=== PATIENT | female | born 1935 | race Caucasian/White ===

== ENCOUNTER 2018-12-16 00:54 | Emergency (ER) | payer BC ==
[~2018-12-16] VITALS: Ht 162.6 cm; Wt 63.5 kg
[2018-12-16 00:55] VITALS: BP_SYST 205
[2018-12-16] MEDS ORDERED: hydrALAZINE HCL 20 MG/ML VIAL IVP ONE ×2 (01:15→02:00)
[2018-12-16] MEDS ORDERED: NS 500 ML IV ONE (01:15)
[2018-12-16 01:57] LABS: BASOPHILS # (AUTO) 0.1 K/uL (0.0-0.2); BASOPHILS % (AUTO) 1.8 % (0.0-2.0); EOSINOPHILS # (AUTO) 0.1 K/uL (0.0-0.4); EOSINOPHILS % (AUTO) 2.2 % (0.0-4.0); HEMATOCRIT 44.8 % (36-48); HEMOGLOBIN 14.9 g/dL (12.0-16.0); LYMPHOCYTES # (AUTO) 1.1 K/uL (1.0-5.5); LYMPHOCYTES % (AUTO) 16.4 % (20.5-51.5); MEAN CORPUSCULAR HEMOGLOBIN 30 pg (27-31); MEAN CORPUSCULAR HGB CONC 33 % (32-36); MEAN CORPUSCULAR VOLUME 89 fL (79.0-98.0); MONOCYTES # (AUTO) 0.4 K/uL (0.0-1.0); NEUTROPHILS % (AUTO) 73.6 % (40.0-70.0); PLATELET COUNT (AUTO) 232 K/uL (130-430); RED BLOOD CELL COUNT(AUTO) 5.06 MIL/uL (4.2-6.2); RED CELL DISTRIBUTION WIDTH 13.7 % (9.0-15.0); WHITE BLOOD COUNT (AUTO) 6.8 K/uL (4.8-10.8)
[2018-12-16 02:14] LABS: ANION GAP 9 (5-15); CHLORIDE 106 mmol/L (98-107); CREATININE 1.38 mg/dL (0.55-1.30); GLUCOSE 105 mg/dL (70-99); POTASSIUM 4.3 mmol/L (3.5-5.1); SODIUM SERUM 140 mmol/L (136-145); UREA NITROGEN, BLOOD 36 mg/dL (8-21)
[2018-12-16] MEDS ORDERED: cloNIDine HCL 0.1 MG TABLET PO ONE (02:15)
[2018-12-16 02:22] LABS: ALANINE AMINOTRANSFERASE 22 U/L (12-78); ALBUMIN 3.5 g/dL (3.4-4.8); ASPARTATE AMINOTRANSFERASE 18 U/L (10-37); TOTAL BILIRUBIN 0.2 mg/dL (0.0-1.0)
[2018-12-16] MEDS ORDERED: IBUPROFEN 400 MG TABLET PO ONE (02:45)
[2018-12-16 05:09] VITALS: BP_SYST 153
== END 2018-12-16 05:08 | disposition home or self-care (01) ==
LOC: SED 00:54
DX: E86.0 Dehydration (principal); N17.9 Acute kidney failure, unspecified; R42 Dizziness and giddiness; I10 Essential (primary) hypertension; M19.90 Unspecified osteoarthritis, unspecified site; Z90.49 Acquired absence of other specified parts of digestive tract
CPT/HCPCS: 36415; 70450; 80053; 84484; 85025; 93005; 96374; 99284; J0360; J7040

== ENCOUNTER 2019-09-18 19:17 | Inpatient (IN) | payer BC ==
[~2019-09-18] VITALS: Ht 162.6 cm; Wt 77.6 kg
[2019-09-18 19:17] VITALS: BP_SYST 163
--- NOTE | 2019-09-18 19:17 | NUR ---
Pt BIB BLS, placed to ER hallway 1 in stable condition. BLS with pt until bed becomes available.
--- NOTE | 2019-09-18 19:55 | NUR ---
Patient to ER bed 6 to gown for evaluation. Side rails up.
[2019-09-18] MEDS ORDERED: NS 500 ML IV ONE (20:00)
--- NOTE | 2019-09-18 20:03 | NUR ---
Pt brought in by [facility]. pt awake, alert, oriented x4. Pt states that she had been feeling "Wobbly" at home. Pt states that she had headache earlier today but currently has no symptoms. Pt states that her family called 911 because her blood pressure was high. EMS states that systolic/diastolic was above 200/100 on scene with repeat blood pressures. Pt states that she has no other symptoms at this time. Pt denies chest pain, nausea, vomiting, diarrhea, shortness of breath or any other medical complaint at this time. Pt resting in ED bed. Pt VSS
--- NOTE | 2019-09-18 20:03 | NUR ---
ER at bedside examining patient.
[2019-09-18] MEDS ORDERED: PANTOPRAZOLE SODIUM 40 MG/VIAL (PROTONIX) IVP ONE (20:15)
[2019-09-18 20:17] LABS: BASOPHILS # (AUTO) 0.1 K/uL (0.0-0.2); BASOPHILS % (AUTO) 1.4 % (0.0-2.0); EOSINOPHILS # (AUTO) 0.3 K/uL (0.0-0.4); EOSINOPHILS % (AUTO) 3.1 % (0.0-4.0); HEMATOCRIT 44.5 % (36-48); LYMPHOCYTES # (AUTO) 1.4 K/uL (1.0-5.5); LYMPHOCYTES % (AUTO) 17.8 % (20.5-51.5); MEAN CORPUSCULAR HEMOGLOBIN 30 pg (27-31); MEAN CORPUSCULAR HGB CONC 34 % (32-36); MEAN CORPUSCULAR VOLUME 90 fL (79.0-98.0); MONOCYTES # (AUTO) 0.7 K/uL (0.0-1.0); MONOCYTES % (AUTO) 8.3 % (1.7-9.3); NEUTROPHILS # (AUTO) 5.6 K/uL (1.8-7.7); NEUTROPHILS % (AUTO) 69.4 % (40.0-70.0); PLATELET COUNT (AUTO) 237 K/uL (130-430); RED BLOOD CELL COUNT(AUTO) 4.96 MIL/uL (4.2-6.2); RED CELL DISTRIBUTION WIDTH 13.8 % (9.0-15.0); WHITE BLOOD COUNT (AUTO) 8.1 K/uL (4.8-10.8)
[2019-09-18] MEDS ORDERED: hydrALAZINE HCL 20 MG/ML VIAL IVP ONE (20:45)
[2019-09-18 20:46] LABS: ANION GAP 6 (5-15); CALCIUM 8.8 mg/dL (8.4-11.0); CHLORIDE 104 mmol/L (98-107); GLUCOSE 93 mg/dL (70-99); POTASSIUM 4.2 mmol/L (3.5-5.1); SODIUM SERUM 137 mmol/L (136-145); UREA NITROGEN, BLOOD 32 mg/dL (8-21)
[2019-09-18 20:52] LABS: ALANINE AMINOTRANSFERASE 40 U/L (12-78); ALBUMIN 3.5 g/dL (3.4-4.8); ASPARTATE AMINOTRANSFERASE 28 U/L (10-37); TOTAL BILIRUBIN 0.4 mg/dL (0.0-1.0)
--- NOTE | 2019-09-18 20:55 | NUR ---
Irais from lab called with Critical lab value. Troponin 0.152
[2019-09-18 20:57] LABS: PROTHROMBIN TIME 9.8 SECS (9.5-12.5)
[2019-09-18] MEDS ORDERED: ASPIRIN 81 MG TAB.CHEW PO ONE (21:15)
[2019-09-18] MEDS ORDERED: HEPARIN 25,000 UNITS/D5W 250ML 250 ML IV ONE (21:15)
[2019-09-18] MEDS ORDERED: HEPARIN SODIUM,PORCINE 5000 UNITS/ML VIAL IVP ONE (21:15)
--- NOTE | 2019-09-18 21:30 | NUR ---
Heparin Drip started at 2ml/hr Per
--- NOTE | 2019-09-18 22:10 | NUR ---
Pt states she does not have to use the restroom. No urge to void. Unable to obtain urine specimen
[2019-09-18] MEDS ORDERED: KETOROLAC TROMETHAMINE 15 MG VIAL IVP ONE (22:15)
[2019-09-18] MEDS ORDERED: METOPROLOL TARTRATE 25 MG TABLET PO ONE (22:15)
[2019-09-18] MEDS ORDERED: NITROGLYCERIN 0.4 MG TAB.SUBL SL ONE (22:15)
--- NOTE | 2019-09-18 22:58 | NUR ---
Pt states pain relieved. pain only 1/10 at this time.
[2019-09-18] MEDS ORDERED: MORPHINE 2 MG/ML INJ. SYRINGE IVP ONE (23:30)
--- NOTE | 2019-09-18 23:33 | NUR ---
Patient will be admitted to care of and [facility]. Admitted to Telemetry unit. Will go to room 101A. Belongings list completed. Complete and up to date summary report printed. SBAR report to be given at bedside with opportunity for questions.
--- NOTE | 2019-09-18 23:33 | NUR ---
Transfer to Telemetry via ACLS protocol. Licensed nurse present. IV present no signs or symptoms of infiltration.
--- NOTE | 2019-09-18 23:53 | NUR ---
ADMIT NOTE Received pt from ER to the floor with a diagnosis of non-stemi. Admission process initiated. patient oriented to pain management, safety and call light-teach back done. Addendum: 09/19/19 at 0035 by Mikey You RN pt is on herapin drip at 200units per hour.
[2019-09-19] VITALS (9 sets, daily range): BP systolic 138–184
[2019-09-19] MEDS ORDERED: FLU VACC TS2019(65UP)/MF59C/PF 45 MCG/0.5 ML SYRINGE I.M. PRN (00:30)
--- NOTE | 2019-09-19 00:30 | NUR ---
RECIEVED REPORT FROM [facility], ALERT/ORIENTATED TIMES 4, RESPIRATIONS EVEN AND UNLABORED,ROOM AIR, , BEDREST, HEPARIN DRIP @ 200 CC/HR INFUSING IN LAC #20G, SKIN INTACT, REQUESTING SLEEPING PILL AND MOTRIN, SR'S UP X'S 3, CALL LIGHT WITHIN REACH, BED IN LOW POSITION, SR WITH 1ST DEGREE BLOCK , SPOKE WITH DR. IMMANUEL ROSALES AND ORDER OBTAINED TO CONTINUE HEPARIN DRIP PER PHARMACY PROTOCOL, ALSO ORDER GIVEN FOR RESTORIL 15MG PO X'S ONCE AND MS I MG IVP X'S ONCE, SPOKE WITH PHARMACIST KARO TO VERIFY HEPARIN DRIP ORDER, WILL CONTINUE TO MONITOR FOR ANY S/S OF DISTRESS.
--- NOTE | 2019-09-19 02:05 | NUR ---
Charlotte PAUL ([facility]) Paged Dr. Orr, s/w Agusto
[2019-09-19] MEDS ORDERED: *HEPARIN PER PHARMACY XX PRN (02:45)
[2019-09-19] MEDS ORDERED: TEMAZEPAM 15 MG CAPSULE PO ONE (02:45)
[2019-09-19] MEDS ORDERED: MORPHINE 2 MG/ML INJ. SYRINGE IVP ONE (02:45)
[2019-09-19] MEDS ORDERED: HEPARIN 25,000 UNITS in 250 ML PREMIX IV PRN (03:00)
[2019-09-19] MEDS ORDERED: HEPARIN SODIUM,PORCINE 2000 UNITS/0.4 ML BOLUS IVP PRN (03:00)
[2019-09-19] MEDS ORDERED: HEPARIN SODIUM,PORCINE 3000 UNITS/0.6 ML BOLUS IVP PRN (03:00)
[2019-09-19] MEDS ORDERED: ALBUTEROL SULFATE 0.083% 2.5 MG/3 ML VIAL.NEB INH PRN (06:15)
[2019-09-19] MEDS ORDERED: ONDANSETRON HCL 4 MG/2 ML VIAL IVP PRN (06:15)
--- NOTE | 2019-09-19 06:25 | NUR ---
CONSULT CARDIOLOGY NSTEMI DR BERGER [phone] S/W KAROL EXCHANGE
--- NOTE | 2019-09-19 06:36 | NUR ---
CLOSING NOTE: RESTING QUIETLY IN BED WITH EYES CLOSED. EASILYN AROUSED, REQUIRES 2 PERSON ASSIST WHEN GETTING OUT OF BED TO RESTROOM, REFUSES BEDPAN, HEPARIN DRIP CONTINUED @ 200 UNITS /HR IN LAC, NO NOTED ACTIVE BLEEDING , SKIN INTACT, TOLERATING PO FLUIDS WELL, DR. GAMBINO @ BEDSIDE, WILL VONTINUE TO MONITOR.
[2019-09-19 07:50] LABS: BASOPHILS # (AUTO) 0.1 K/uL (0.0-0.2); BASOPHILS % (AUTO) 0.8 % (0.0-2.0); EOSINOPHILS # (AUTO) 0.1 K/uL (0.0-0.4); EOSINOPHILS % (AUTO) 1.3 % (0.0-4.0); HEMATOCRIT 44.1 % (36-48); HEMOGLOBIN 14.6 g/dL (12.0-16.0); LYMPHOCYTES # (AUTO) 1.5 K/uL (1.0-5.5); LYMPHOCYTES % (AUTO) 18.5 % (20.5-51.5); MEAN CORPUSCULAR HEMOGLOBIN 30 pg (27-31); MEAN CORPUSCULAR HGB CONC 33 % (32-36); MEAN CORPUSCULAR VOLUME 90 fL (79.0-98.0); MONOCYTES # (AUTO) 0.6 K/uL (0.0-1.0); NEUTROPHILS # (AUTO) 5.7 K/uL (1.8-7.7); NEUTROPHILS % (AUTO) 72.4 % (40.0-70.0); PLATELET COUNT (AUTO) 237 K/uL (130-430); RED CELL DISTRIBUTION WIDTH 13.8 % (9.0-15.0); WHITE BLOOD COUNT (AUTO) 7.9 K/uL (4.8-10.8)
[2019-09-19 08:08] LABS: ALANINE AMINOTRANSFERASE 39 U/L (12-78); ALBUMIN 3.2 g/dL (3.4-4.8); ANION GAP 5 (5-15); ASPARTATE AMINOTRANSFERASE 30 U/L (10-37); CALCIUM 8.5 mg/dL (8.4-11.0); CHLORIDE 105 mmol/L (98-107); CREATININE 1.55 mg/dL (0.55-1.30); GLUCOSE 94 mg/dL (70-99); POTASSIUM 4.6 mmol/L (3.5-5.1); SODIUM SERUM 138 mmol/L (136-145); TOTAL BILIRUBIN 0.5 mg/dL (0.0-1.0); UREA NITROGEN, BLOOD 32 mg/dL (8-21)
[2019-09-19] MEDS: HYDROcodone/ACETAMIN 10-325 MG TAB PO PRN ×2 (08:30→16:22)
[2019-09-19] MEDS: ASPIRIN 325 MG TABLET PO SCH (09:14)
--- NOTE | 2019-09-19 09:15 | NUR ---
Routine Scheduled medication given per order. Patient resting comfortably in bed; states pain subsided to 2/10. Patient stable at this time.
[2019-09-19 09:31] LABS: CHOLESTEROL 226 mg/dL (<200); HDL CHOLESTEROL 54 mg/dL (>55); LDL CHOLESTEROL 140 mg/dL (<100); TRIGLYCERIDES 192 mg/dL (30-150)
--- NOTE | 2019-09-19 11:00 | NUR ---
Nutrition Update David Scale 18 noted. Pt admitted for NON STEMI. Diet: cardiac BMI: 29.4 kg/m2 RD to follow per nutrition care standards.
--- NOTE | 2019-09-19 13:15 | NUR ---
Routine Patient resting comfortably in bed with no distress noted at this time. Patient stable.
--- NOTE | 2019-09-19 15:10 | NUR ---
Patient received a/ox4, denies pain, denies shortness of breath, instructed the patient information support project manager light use, she verbalized understanding, call light placed within reach, fall and aspiration precautions in place.
--- NOTE | 2019-09-19 16:25 | NUR ---
Pain patient resting in bed, awake, complaining of pain to her knees, educated her on pain medication uses and potential side effects, she verbalized understanding and tolerated well, no other needs at this time, bed in lowest position, two side rails up, call light placed within patient reach, fall and aspiration precautions in place.
--- NOTE | 2019-09-19 18:47 | NUR ---
Closing note patient resting in bed, awake, eating dinner, aspiration precautions in place, all needs met, will endorse report to NOC shift nurse, bed in lowest position, two side rails up, call light within reach, fall and aspiration precautions in place.
--- NOTE | 2019-09-19 19:15 | NUR ---
CHANGE OF SHIFT; pt. awake, alert, talking to her cellphone. no complaints noted, no chest pain nor short of breath. call light within reach. will reassess later.
--- NOTE | 2019-09-19 20:30 | NUR ---
NOTES: pt. awake, watching tv. follows simple commands. VS checked. IV lock on left ac. some skin bruising on upper arms. no chest pain. call light at bedside. Addendum: 09/19/19 at 2212 by Shayla Lomeli RN cardiac pattern on sinus rhythm.
--- NOTE | 2019-09-19 21:00 | NUR ---
NOTES: assisted to BSC and voided, FUR GRADER asked to help pt. george care done, will need urine for test. call light at bedside.
--- NOTE | 2019-09-19 21:45 | NUR ---
NOTES: urine specimen obtained and send to lab for UA.
[2019-09-19] MEDS: HYDROcodone/ACETAMIN 5-325 MG TAB (NORCO/ VICODIN) PO PRN (22:03)
--- NOTE | 2019-09-19 22:07 | NUR ---
NOTES: medicated with Homer for c/o bilateral foot/knees deepa. left side ( arthritis) , wants a sleeping pill, will call MD for order.
--- NOTE | 2019-09-19 22:10 | NUR ---
PAGED I PAGED DR. GAMBINO @ [phone] I SPOKE WITH AASHISH JEAN
[2019-09-19 22:33] LABS: BILIRUBIN,URINE NEGATIVE (NEGATIVE); CLARITY/URINE SL CLOUDY (CLEAR); COLOR,URINE YELLOW (YELLOW); GLUCOSE,URINE NEGATIVE (NEGATIVE); KETONES,URINE NEGATIVE (NEGATIVE); LEUKOCYTE ESTERASE ,URINE 1+ (NEGATIVE); NITRITE, URINE POSITIVE (NEGATIVE); PH,URINE 5.5 (5.0-8.0); PROTEIN URINE NEGATIVE (NEGATIVE); UROBILINOGEN,URINE 0.2 (0.2-1.0)
[2019-09-19 22:34] LABS: BLOOD, URINE TRACE (NEGATIVE)
[2019-09-19 22:40] LABS: BACTERIA,URINE MANY /HPF (None Seen); WBC,URINE 50-80 /HPF (0-3)
--- NOTE | 2019-09-19 23:08 | NUR ---
PAGED I PAGED DR. GAMBINO @ [phone] I SPOKE WITH AASHISH JEAN THIS IS THE SECOND CALL
[2019-09-19] MEDS ORDERED: TEMAZEPAM 15 MG CAPSULE PO PRN (23:30)
--- NOTE | 2019-09-19 23:32 | NUR ---
NOTES; Dr. Orr called back atter 2 attempts of calling exchange, ordered Restoril po prn for sleep.
--- NOTE | 2019-09-20 00:05 | NUR ---
NOTES: verified order from pharmacy, sleeping pill given per pt. request. repositioned self for comfort and warm blanket given. call light within reach. turn on bed alarm ,risk for fall.
[2019-09-20 00:34] VITALS: BP_SYST 148
--- NOTE | 2019-09-20 02:00 | NUR ---
NOTES: made rounds, pt, sleeping. no acute distress.
[2019-09-20 02:51] LABS: ALANINE AMINOTRANSFERASE 36 U/L (12-78); ALBUMIN 3.2 g/dL (3.4-4.8); ANION GAP 8 (5-15); ASPARTATE AMINOTRANSFERASE 30 U/L (10-37); CALCIUM 8.4 mg/dL (8.4-11.0); CHLORIDE 105 mmol/L (98-107); CREATININE 1.67 mg/dL (0.55-1.30); GLUCOSE 101 mg/dL (70-99); POTASSIUM 4.1 mmol/L (3.5-5.1); SODIUM SERUM 137 mmol/L (136-145); THYROID STIMULATING HORMONE 0.86 uIu/mL (0.36-3.74); TOTAL BILIRUBIN 0.5 mg/dL (0.0-1.0); UREA NITROGEN, BLOOD 35 mg/dL (8-21)
--- NOTE | 2019-09-20 03:00 | NUR ---
NOTES: pt. woke up, set off bd alarm. wants to put her dentures, sat up at the edge of the bed. assisted to BSC and voided. pt. does not want her gown, rather have her t shirt. pt. back to bed and pulled up and repositioned.
[2019-09-20] MEDS: HYDROcodone/ACETAMIN 5-325 MG TAB (NORCO/ VICODIN) PO PRN ×2 (06:38→19:59)
--- NOTE | 2019-09-20 07:30 | NUR ---
opening note patient is resting in bed, alert and oriented, educated options trader light system and plan of care, patient verbalized understanding, patient complained that she does not like her diet, educated her on the importance of the diet and being cooperative with it, patient stated "if I do not get a lot of salt with my food then I do not want to eat, I love salt", no signs of distress at this time, no other needs addressed at this time, brake armed, bed alarm on, two side rails up, call light within reach, fall/safety precautions in place.
[2019-09-20 08:00] VITALS: BP_SYST 184
--- NOTE | 2019-09-20 08:22 | NUR ---
PAGED PAGED MARILYN WAGNER AT [phone]MILLER IBARRA PAUL BILLBOARD INSTALLER.
[2019-09-20] MEDS: ASPIRIN 325 MG TABLET PO SCH (08:49)
[2019-09-20] MEDS ORDERED: ATORVASTATIN 20 MG TABLET PO SCH (09:00)
[2019-09-20] MEDS ORDERED: amLODIPine BESYLATE 5 MG TABLET PO SCH (09:00)
[2019-09-20] MEDS ORDERED: LEVO100T9 PO (09:33)
[2019-09-20] MEDS ORDERED: TRAM-350 PO (09:35)
[2019-09-20] MEDS ORDERED: LORA-259 PO (09:35)
[2019-09-20] MEDS ORDERED: IBUP-1969 PO (09:35)
--- NOTE | 2019-09-20 10:00 | NUR ---
BP rechecked BP rechecked, 146/92, has improved, helped patient be repositioned, no signs of distress at this time, no other needs addressed at this time, fall/safety precautions in place.
[2019-09-20 10:05] VITALS: BP_SYST 146
[2019-09-20] MEDS ORDERED: AMLO5TAB4 PO (11:30)
[2019-09-20 11:40] VITALS: BP_SYST 144
[2019-09-20] MEDS ORDERED: IBUPROFEN 600 MG TABLET PO PRN (12:00)
--- NOTE | 2019-09-20 12:36 | NUR ---
prn ibuprofen patient complaining of bilateral knee pain, educated on medication use and side effects, patient verbalized understanding, no other needs addressed at this time, patient verbalized that she is okay with going home, but her son will not be able to come until marleny, made charge nurse aware of this.
[2019-09-20] MEDS ORDERED: LORazepam 1 MG TABLET PO ONE (14:45)
--- NOTE | 2019-09-20 14:49 | NUR ---
one time ativan patient is anxious, talked to Dr Aguirre about her home medication of ativan, okayed for one time dose for it, patient verbalized understanding, educated on medication use and side effects, patient verbalized understanding, no other needs at this time, fall/safety precautions in place.
[2019-09-20 15:57] VITALS: BP_SYST 167
--- NOTE | 2019-09-20 16:40 | NUR ---
rounds patient resting in bed, able to sit on the edge of the bed on her own, said son won't be able to come until after 1900, informed charge nurse about this, no other needs addressed at this time, fall/safety precautions in place.
--- NOTE | 2019-09-20 19:00 | NUR ---
closing note patient is resting in bed, assisted patient to bathroom and back to bed, no signs of distress at this time, no other needs addressed at this time, brake armed, bed alarm on, two side rails up, call light within reach, fall/safety precautions in place, endorsed report to noc shift nurse to continue with care, patient's son said that he will come around [phone] to cherry picker operator patient.
--- NOTE | 2019-09-20 20:00 | NUR ---
AAOX4. IN NO APPARENT DISTRESS. VSS. NORCO 5-325MG PO GIVEN FOR C/O LEG PAIN. ON ROOM AIR. POX 95%. BREATH SOUNDS CLEAR. BOWEL SOUNDS (+). PULSES PALPABLE. ABLE TO AMBULATE TO BATHROOM WITH MINIMAL ASSIST TO VOID. SR. AWAITING SON, READY TO GO HOME.
[2019-09-20 20:23] VITALS: BP_SYST 135
--- NOTE | 2019-09-20 20:45 | NUR ---
CALLED [facility], VERIFIED IF DISCHARGE IS OKAY WITH DR BERGER. BARRY STATED THAT SHE TALKED TO DR BERGER AND IT IS OKAY WITH HIM.
--- NOTE | 2019-09-20 22:00 | NUR ---
DOZES ON AND OFF. AMBULATED EARLIER TO BATHROOM WITH 1 NURSE ASSIST TO VOID.
--- NOTE | 2019-09-20 22:55 | NUR ---
SONS OSCAR AND JIN HERE TO TAKE MOTHER HOME. PT DISCHARGED, BY WHEELCHAIR TO PARKING LOT, IN SATISFACTORY CONDITION WITH ALL BELONGINGS. PIV DC'D. ARMBAND CUT. PAPERWORK SIGNED. TELEBOX RETRIEVED.
== END 2019-09-20 22:55 | disposition home or self-care (01) | DRG 282 ==
LOC: SED 19:17 → STU 22:39
PROVIDERS: ADMIT Internal Medicine Hospice and Palliative Medicine; ATTEND Internal Medicine Hospice and Palliative Medicine
DX: I21.A1 Myocardial infarction type 2 (principal); E03.9 Hypothyroidism, unspecified; N18.2 Chronic kidney disease, stage 2 (mild); I12.9 Hypertensive chronic kidney disease with stage 1 through stage 4 chronic kidney disease, or unspecified chronic kidney disease; M19.90 Unspecified osteoarthritis, unspecified site; F17.210 Nicotine dependence, cigarettes, uncomplicated; I48.91 Unspecified atrial fibrillation; Z90.49 Acquired absence of other specified parts of digestive tract
CPT/HCPCS: 36415; 71045; 80053; 80061; 81000-TC; 83605; 84443-TC; 84484; 85025; 85610-TC; 85730-TC; 87040-TC; 87086; 87186-TC; 93005; 93306; 96374; 96375; 99285; C9113; G0378; J0360; J1644; J1885; J2270; J7040

== ENCOUNTER 2021-01-09 14:46 | Emergency (ER) | payer BC, OTHER ==
[~2021-01-09] VITALS: Ht 162.6 cm; Wt 71.2 kg
[~2021-01-09 14:46] MED LIST: AMLO5TAB4 PO; IBUP-1969 PO; LEVO100T9 PO; LORA-259 PO; TRAM-350 PO
[2021-01-09 14:52] VITALS: BP_SYST 126
[2021-01-09] MEDS ORDERED: NACL 0.9% 1,000 ML IV ONE (16:00)
[2021-01-09 16:19] LABS: BASOPHILS % (AUTO) 0.3 % (0.0-2.0); EOSINOPHILS # (AUTO) 0.3 K/uL (0.0-0.4); EOSINOPHILS % (AUTO) 2.9 % (0.0-4.0); HEMATOCRIT 40.3 % (36-48); HEMOGLOBIN 13.6 g/dL (12.0-16.0); LYMPHOCYTES % (AUTO) 10.1 % (20.5-51.5); MEAN CORPUSCULAR HEMOGLOBIN 30 pg (27-31); MEAN CORPUSCULAR HGB CONC 34 % (32-36); MEAN CORPUSCULAR VOLUME 90 fL (79.0-98.0); MONOCYTES # (AUTO) 0.8 K/uL (0.0-1.0); MONOCYTES % (AUTO) 7.9 % (1.7-9.3); NEUTROPHILS # (AUTO) 7.5 K/uL (1.8-7.7); NEUTROPHILS % (AUTO) 78.8 % (40.0-70.0); PLATELET COUNT (AUTO) 271 K/uL (130-430); RED BLOOD CELL COUNT(AUTO) 4.49 MIL/uL (4.2-6.2); RED CELL DISTRIBUTION WIDTH 14.4 % (9.0-15.0); WHITE BLOOD COUNT (AUTO) 9.5 K/uL (4.8-10.8)
[2021-01-09 16:41] LABS: ANION GAP 11 (5-15); CALCIUM 8.4 mg/dL (8.4-11.0); CHLORIDE 109 mmol/L (98-107); CREATININE 1.99 mg/dL (0.55-1.30); GLUCOSE 91 mg/dL (70-99); POTASSIUM 4.6 mmol/L (3.5-5.1); SODIUM SERUM 140 mmol/L (136-145); UREA NITROGEN, BLOOD 35 mg/dL (8-21)
[2021-01-09 16:46] LABS: ALANINE AMINOTRANSFERASE 34 U/L (12-78); ALBUMIN 3.2 g/dL (3.4-4.8); ASPARTATE AMINOTRANSFERASE 39 U/L (10-37); TOTAL BILIRUBIN 0.3 mg/dL (0.0-1.0)
[2021-01-09 16:53] LABS: PROTHROMBIN TIME 9.9 SECS (9.5-12.5)
[2021-01-09 17:54] LABS: BILIRUBIN,URINE NEGATIVE (NEGATIVE); BLOOD, URINE NEGATIVE (NEGATIVE); CLARITY/URINE CLEAR (CLEAR); COLOR,URINE YELLOW (YELLOW); GLUCOSE,URINE NEGATIVE (NEGATIVE); KETONES,URINE NEGATIVE (NEGATIVE); LEUKOCYTE ESTERASE ,URINE NEGATIVE (NEGATIVE); NITRITE, URINE NEGATIVE (NEGATIVE); PROTEIN URINE NEGATIVE (NEGATIVE); UROBILINOGEN,URINE 0.2 (0.2-1.0)
[2021-01-09] MEDS ORDERED: MORPHINE 2 MG/ML INJ. SYRINGE IVP ONE (20:15)
[2021-01-09] MEDS ORDERED: DIPHENHYDRAMINE INJ 50 MG/ML VIAL IVP ONE (20:15)
[2021-01-10 02:41] VITALS: BP_SYST 118
[2021-01-10] MEDS ORDERED: ACETAMINOPHEN 500 MG TABLET ONE (02:53)
[2021-01-10] MEDS ORDERED: ACETAMINOPHEN 500 MG TABLET PO ONE (03:00)
== END 2021-01-10 02:41 | disposition short-term general hospital (02) ==
LOC: SED 14:46
DX: I87.2 Venous insufficiency (chronic) (peripheral) (principal); N28.9 Disorder of kidney and ureter, unspecified; I10 Essential (primary) hypertension; E07.9 Disorder of thyroid, unspecified; Z90.49 Acquired absence of other specified parts of digestive tract; Z79.899 Other long term (current) drug therapy; Z20.822 Contact with and (suspected) exposure to COVID-19
CPT/HCPCS: 36415; 71045; 73630; 80053; 81003; 83605; 85025; 85610; 85730; 87040; 87426; 93005; 96361; 96374; 96375; 99285; J1200; J2270; J7030